=== PATIENT | male | born 1990 | race Caucasian/White ===

== ENCOUNTER 2016-06-06 11:01 | Emergency (ER) | payer MEDICAID ==
[~2016-06-06] VITALS: Ht 165.1 cm; Wt 73.0 kg
[2016-06-06 12:07] VITALS: BP 118/70
== END 2016-06-06 13:44 | disposition home or self-care (01) ==
LOC: ER 12:43
DX: S91.202A Unspecified open wound of left great toe with damage to nail, initial encounter (principal); F17.200 Nicotine dependence, unspecified, uncomplicated; Y93.89 Activity, other specified; Y99.9 Unspecified external cause status; Y92.89 Other specified places as the place of occurrence of the external cause
CPT/HCPCS: 99281